=== PATIENT | male | born 1980 | race Caucasian/White ===

== ENCOUNTER 2024-12-31 13:40 | Inpatient (IN) | payer OTHER ==
[~2024-12-31] VITALS: Ht 157.5 cm; Wt 60.0 kg
[2024-12-31] MEDS: VANCOMYCIN 1.25 GM/WATER(PEG) 250 ML IV ONE (15:32)
[2024-12-31 15:50] LABS: PLATELET COUNT (AUTO) 275 K/uL (150-450); RED BLOOD CELL COUNT(AUTO) 4.70 MIL/uL (4.50-5.90); RED CELL DISTRIBUTION WIDTH 14.4 % (11.5-14.5); WHITE BLOOD COUNT (AUTO) 5.1 K/uL (4.5-11.0)
[2024-12-31 15:56] LABS: CALCIUM, TOTAL 9.0 mg/dL (8.8-10.5); CREATININE 0.54 mg/dL (0.60-1.30); GLOMERULAR FILTR. RATE CALC > 60 mL/min (>60); GLUCOSE,RANDOM 91 mg/dL (70-110); SODIUM SERUM 140 mmol/L (136-145); UREA NITROGEN, BLOOD 12 mg/dL (7-18)
[2024-12-31 16:02] LABS: ASPARTATE AMINOTRANSFERASE 27 U/L (15-37); CREATINE KINASE, TOTAL ONLY 244 U/L (39-308); TOTAL PROTEIN, SERUM 7.3 g/dL (6.4-8.2)
[2024-12-31 16:08] LABS: TROPONIN I-HIGH SENSITIVITY 15 ng/L (<76)
[2024-12-31 16:30] LABS: ALCOHOL, BLOOD (SERUM) < 3 mg/dL (0-10)
[2024-12-31 17:03] LABS: APPEARANCE,URINE CLEAR (CLEAR); GLUCOSE, URINE (UA) NEGATIVE (NEGATIVE); LEUKOCYTE ESTERASE ,URINE NEGATIVE (NEGATIVE); NITRATE,URINE NEGATIVE (NEGATIVE); OCCULT BLOOD,URINE NEGATIVE (NEGATIVE); PH,URINE DRUG SCREEN 7.0 (5.0-8.0); SPECIFIC GRAVITIY, URINE 1.013 (1.003-1.030)
[2024-12-31 17:33] LABS: AMPHET/METH SCREEN,URINE POSITIVE (NEGATIVE); BARBITURATE SCREEN, URINE NEGATIVE (NEGATIVE); CANNABINOID SCREEN,URINE NEGATIVE (NEGATIVE); COCAINE SCREEN,URINE NEGATIVE (NEGATIVE); METHADONE SCREEN, URINE NEGATIVE (NEGATIVE)
[2024-12-31 17:36] LABS: ALCOHOL, URINE DRUG SCREEN NEGATIVE (NEGATIVE)
[2024-12-31] MEDS ORDERED: BISACODYL 10 MG RECTAL RECTAL SUPPOSITORY PR PRN (17:45)
[2024-12-31] MEDS ORDERED: ZOLPIDEM TARTRATE 5 MG TABLET PO PRN (17:45)
[2024-12-31] MEDS ORDERED: ACETAMINOPHEN 325 MG TABLET PO PRN (17:45)
[2024-12-31] MEDS ORDERED: ALBUTEROL SULFATE 2.5 MG/0.5 ML NEB SOLUTION NEB PRN (17:45)
[2024-12-31] MEDS ORDERED: MAGNESIUM HYDROXIDE SUSPENSION 30 ML UDCUP PO PRN (17:45)
[2024-12-31] MEDS ORDERED: IPRATROPIUM BROMIDE 0.5 MG/2.5 ML NEB SOLUTION NEB PRN (17:45)
[2024-12-31] MEDS ORDERED: ONDANSETRON HCL 4 MG/2 ML VIAL IVP PRN (17:45)
[2024-12-31 21:47] VITALS: BP 145/98; PULSE 89; RESP 18; TEMP 97.9; O2SAT 99
[2025-01-01] MEDS: VANCOMYCIN 1.5 GM/WATER(PEG) 300 ML IV ONE (00:26)
[2025-01-01] MEDS: HEPARIN SODIUM,PORCINE 5,000 UNITS/ML VIAL SQ SCH (00:27)
[2025-01-01 05:33] VITALS: BP 139/80; PULSE 64; RESP 18; TEMP 97.9; O2SAT 99
[2025-01-01 07:11] LABS: CALCIUM, TOTAL 8.7 mg/dL (8.8-10.5); CREATININE 0.86 mg/dL (0.60-1.30); GLOMERULAR FILTR. RATE CALC > 60 mL/min (>60); GLUCOSE,RANDOM 86 mg/dL (70-110); SODIUM SERUM 136 mmol/L (136-145); UREA NITROGEN, BLOOD 12 mg/dL (7-18)
[2025-01-01 08:00] VITALS: BP 132/98; PULSE 89; RESP 19; TEMP 97.5; O2SAT 100
[2025-01-01] MEDS: PANTOPRAZOLE SODIUM 40 MG DR TABLET PO SCH (10:35)
[2025-01-01] MEDS: VANCOMYCIN 1.25 GM/WATER(PEG) 250 ML IV SCH (10:35)
[2025-01-01] MEDS: PIPERONYL BUTOXIDE/PYRETHRINS 120 ML SHAMPOO TP ONE (13:43)
[2025-01-01 20:30] VITALS: BP 122/76; PULSE 76; RESP 18; TEMP 98.4; O2SAT 98
[2025-01-02 05:31] VITALS: BP 131/84; PULSE 86; RESP 18; TEMP 99; O2SAT 98
[2025-01-02 07:35] LABS: CALCIUM, TOTAL 9.4 mg/dL (8.8-10.5); CREATININE 0.87 mg/dL (0.60-1.30); GLOMERULAR FILTR. RATE CALC > 60 mL/min (>60); GLUCOSE,RANDOM 111 mg/dL (70-110); SODIUM SERUM 139 mmol/L (136-145); UREA NITROGEN, BLOOD 15 mg/dL (7-18)
[2025-01-02] MEDS ORDERED: SODIUM CHLORIDE 0.9% 500 ML IV ONE (08:46)
[2025-01-02] MEDS: VANCOMYCIN 1GM/WATER(PEG/NADA) 200 ML IV SCH (08:47)
[2025-01-02 09:37] VITALS: BP 149/97; PULSE 72; RESP 18; TEMP 98; O2SAT 99
[2025-01-02] MEDS ORDERED: DOXY-354 PO (12:08)
== END 2025-01-02 15:15 | DRG 603 ==
LOC: EMS 13:42 → EDH 16:48 → 6N 21:06
PROVIDERS: ADMIT Hospitalist; ATTEND Hospitalist
DX: L03.115 Cellulitis of right lower limb (principal); E44.0 Moderate protein-calorie malnutrition; B85.2 Pediculosis, unspecified; F15.10 Other stimulant abuse, uncomplicated; I50.9 Heart failure, unspecified; L03.116 Cellulitis of left lower limb; Z68.24 Body mass index [BMI] 24.0-24.9, adult
CPT/HCPCS: 71045; 80048; 80076; 80307; 81003; 82550; 83880; 84484; 85025; 85610; 85730; 93005; 93306; 93970; 99285; G0480; J1644; J7040; 36415-L1; 36415-TC